=== PATIENT | female | born 2005 | race Caucasian/White ===

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

== ENCOUNTER 2025-06-09 20:05 | Emergency (ER) | payer OTHER ==
[~2025-06-09] VITALS: Ht 162.6 cm; Wt 52.3 kg
[~2025-06-09 20:05] MED LIST: ACET-66 PO; LOPE-232 PO; ONDA-104 PO
[2025-06-09 20:30] VITALS: TEMP 97.905272
[2025-06-09 21:06] VITALS: BP 104/63; PULSE 82; RESP 15; O2SAT 100
== END 2025-06-09 21:08 | disposition home or self-care (01) ==
LOC: EMS 20:19
DX: T50.901A Poisoning by unspecified drugs, medicaments and biological substances, accidental (unintentional), initial encounter (principal); R07.89 Other chest pain; F32.A Depression, unspecified; F41.9 Anxiety disorder, unspecified; Z88.0 Allergy status to penicillin; Z79.899 Other long term (current) drug therapy; Y92.89 Other specified places as the place of occurrence of the external cause
CPT/HCPCS: 93005; 99283

== ENCOUNTER 2025-09-06 21:36 | Emergency (ER) | payer OTHER ==
[~2025-09-06] VITALS: Ht 162.6 cm; Wt 55.9 kg
[2025-09-06 21:55] VITALS: TEMP 97.7
[2025-09-06] MEDS: SODIUM CHLORIDE 0.9% 1,000 ML IV ONE (23:03)
[2025-09-06 23:12] LABS: COVID AG,FIA SOURCE NASAL SWAB
[2025-09-06 23:14] LABS: PLATELET COUNT (AUTO) 333 K/uL (150-450); RED BLOOD CELL COUNT(AUTO) 4.68 MIL/uL (4.00-5.20); RED CELL DISTRIBUTION WIDTH 13.0 % (11.5-14.5); WHITE BLOOD COUNT (AUTO) 9.6 K/uL (4.5-11.0)
[2025-09-06 23:17] LABS: SARS-COV2 (COVID) ANTIGEN,FIA Negative (Negative)
[2025-09-06 23:23] LABS: CALCIUM, TOTAL 9.0 mg/dL (8.8-10.5); CREATININE 1.08 mg/dL (0.60-1.30); GLOMERULAR FILTR. RATE CALC > 60 mL/min (>60); GLUCOSE,RANDOM 104 mg/dL (70-110); SODIUM SERUM 137 mmol/L (136-145); UREA NITROGEN, BLOOD 13 mg/dL (7-18)
[2025-09-06 23:27] LABS: ASPARTATE AMINOTRANSFERASE 17 U/L (15-37); TOTAL PROTEIN, SERUM 8.5 g/dL (6.4-8.2)
[2025-09-06 23:28] LABS: ALCOHOL, BLOOD (SERUM) < 3 mg/dL (0-10)
[2025-09-07 00:30] VITALS: BP 126/83; PULSE 92; RESP 16; O2SAT 99
== END 2025-09-07 01:04 | disposition home or self-care (01) ==
LOC: EMS 21:37
DX: T43.591A Poisoning by other antipsychotics and neuroleptics, accidental (unintentional), initial encounter (principal); F31.9 Bipolar disorder, unspecified; F41.9 Anxiety disorder, unspecified; Z88.0 Allergy status to penicillin; Z20.822 Contact with and (suspected) exposure to COVID-19; Z79.899 Other long term (current) drug therapy; Y92.89 Other specified places as the place of occurrence of the external cause
CPT/HCPCS: 99284; 96360; 96361; 87426; 80048; 80076; 85025; 36415; 93005; G0480; J7030; G0481